=== PATIENT | female | born 1985 | race Caucasian/White ===

== ENCOUNTER → 2016-03-21 | Outpatient (CLI) | payer BC | LOC: RAD 14:39 | DX: R06.02 Shortness of breath (principal) ==

== ENCOUNTER → 2018-12-30 | Outpatient (CLI) | payer BC ==
[2018-12-30 10:10] LABS: HEMATOCRIT 35.8 % (37.0-47.0); HEMOGLOBIN 10.4 g/dL (12.5-16.0); MEAN CELL VOLUME 71 fl (78-100); MEAN PLATELET VOLUME 9.4 fl (7.4-10.4); PLATELET COUNT 400 K/mm3 (130-400); RED BLOOD COUNT 5.08 M/mm3 (4.10-5.30); WHITE BLOOD COUNT 8.1 K/mm3 (4.8-10.8)
[2018-12-30 10:16] LABS: POTASSIUM 3.8 mmol/L (3.5-5.1)
[2018-12-30 10:17] LABS: CALCIUM 9.2 mg/dL (8.3-10.5)
[2018-12-30 10:19] LABS: TOTAL PROTEIN 7.6 g/dL (6.4-8.3)
[2018-12-30 10:21] LABS: TOTAL BILIRUBIN 0.6 mg/dL (0.2-1.2)
[2018-12-30 11:13] LABS: MEAN CORPUSCULAR HEMOGLOBIN 21 pg (27-31); MEAN CORPUSCULAR HGB CONC 29 g/dL (33-37); RED CELL DISTRIBUTION WIDTH 19.1 % (11.5-14.5)
[2018-12-30 12:14] LABS: LYMPHOCYTE 39 % (20-51); MONOCYTE 6 % (3-10); NEUTROPHILS 52 % (42-75)
[2018-12-30 12:15] LABS: ERYTHROCYTE SEDIMENTATION RATE 9 mm/hr (0-20); MICROCYTOSIS 1+
== END ==
LOC: LAB 09:50
PROVIDERS: Internal Medicine
DX: Z00.00 Encounter for general adult medical examination without abnormal findings (principal)

== ENCOUNTER → 2019-05-29 | Outpatient (CLI) | payer BC ==
[2019-05-29 16:39] LABS: EOS # 0.1 (0.04-0.40); EOS % 1.6 % (1.0-5.0); HEMATOCRIT 38.6 % (37.0-47.0); HEMOGLOBIN 11.5 g/dL (12.5-16.0); LYMPH# 2.9 (1.50-4.00); MEAN CELL VOLUME 78 fl (78-100); MEAN CORPUSCULAR HGB CONC 30 g/dL (33-37); MONO # 0.8 (0.20-0.80); NEU # 4.5 (1.40-6.50); PLATELET COUNT 453 K/mm3 (130-400); RED BLOOD COUNT 4.96 M/mm3 (4.10-5.30); RED CELL DISTRIBUTION WIDTH 17.4 % (11.5-14.5); WHITE BLOOD COUNT 8.3 K/mm3 (4.8-10.8)
[2019-05-29 16:43] LABS: MEAN CORPUSCULAR HEMOGLOBIN 23 pg (27-31)
[2019-05-29 16:57] LABS: POTASSIUM 3.6 mmol/L (3.5-5.1)
[2019-05-29 16:59] LABS: CALCIUM 9.5 mg/dL (8.3-10.5)
[2019-05-29 17:00] LABS: TOTAL PROTEIN 7.6 g/dL (6.4-8.3)
[2019-05-29 17:02] LABS: TOTAL BILIRUBIN 0.5 mg/dL (0.2-1.2)
== END ==
LOC: LAB 16:27
PROVIDERS: Internal Medicine
DX: Z00.00 Encounter for general adult medical examination without abnormal findings (principal)

== ENCOUNTER → 2021-06-28 | Outpatient (CLI) | payer OTHER ==
[2021-06-28 13:16] LABS: BASO # 0.02 K/mm3 (0.02-0.10); EOS # 0.09 K/mm3 (0.04-0.40); EOS % 0.7 % (1.0-5.0); HEMATOCRIT 48.9 % (37.0-47.0); HEMOGLOBIN 16.3 g/dL (12.5-16.0); LYMPH# 3.23 K/mm3 (1.50-4.00); MEAN CELL VOLUME 92 fl (78-100); MEAN CORPUSCULAR HEMOGLOBIN 31 pg (27-31); MEAN CORPUSCULAR HGB CONC 33 g/dL (33-37); MEAN PLATELET VOLUME 9.9 fl (7.4-10.4); MONO # 0.89 K/mm3 (0.20-0.80); PLATELET COUNT 311 K/mm3 (130-400); RED BLOOD COUNT 5.34 M/mm3 (4.10-5.30); WHITE BLOOD COUNT 13.3 K/mm3 (4.8-10.8)
[2021-06-28 13:25] LABS: POTASSIUM 4.1 mmol/L (3.5-5.1)
[2021-06-28 13:26] LABS: ALBUMIN 4.5 g/dL (3.5-5.0)
[2021-06-28 13:27] LABS: CALCIUM 10.2 mg/dL (8.3-10.5)
[2021-06-28 13:28] LABS: TOTAL PROTEIN 8.3 g/dL (6.4-8.3)
[2021-06-28 13:30] LABS: TOTAL BILIRUBIN 1.4 mg/dL (0.2-1.2)
== END ==
LOC: LAB 12:51
PROVIDERS: Internal Medicine
DX: Z00.00 Encounter for general adult medical examination without abnormal findings (principal); F41.8 Other specified anxiety disorders

== ENCOUNTER → 2023-01-01 | Outpatient (CLI) | payer BC | LOC: LAB 16:50 | DX: F41.8 Other specified anxiety disorders (principal); E66.9 Obesity, unspecified; R17 Unspecified jaundice; E78.2 Mixed hyperlipidemia; E28.2 Polycystic ovarian syndrome; R73.03 Prediabetes; E55.9 Vitamin D deficiency, unspecified; K90.9 Intestinal malabsorption, unspecified; E03.9 Hypothyroidism, unspecified; F90.0 Attention-deficit hyperactivity disorder, predominantly inattentive type; B37.2 Candidiasis of skin and nail; E21.1 Secondary hyperparathyroidism, not elsewhere classified ==

== ENCOUNTER → 2023-05-15 | Outpatient (CLI) | payer BC | LOC: LAB 15:49 | PROVIDERS: Internal Medicine | DX: E21.1 Secondary hyperparathyroidism, not elsewhere classified (principal) ==

== ENCOUNTER → 2024-01-14 | Outpatient (CLI) | payer BC ==
[2024-01-14 17:07] LABS: ALBUMIN 3.9 g/dL (3.5-5.0)
[2024-01-14 17:09] LABS: CALCIUM 8.7 mg/dL (8.3-10.5)
[2024-01-14 17:10] LABS: TOTAL PROTEIN 6.7 g/dL (6.4-8.3)
[2024-01-14 17:12] LABS: TOTAL BILIRUBIN 1.1 mg/dL (0.2-1.2)
[2024-01-14 17:16] LABS: MAGNESIUM 1.96 mg/dL (1.60-2.60)
[2024-01-14 17:34] LABS: BASO # 0.01 K/mm3 (0.02-0.10); EOS # 0.05 K/mm3 (0.04-0.40); EOS % 0.8 % (1.0-5.0); HEMATOCRIT 39.3 % (37.0-47.0); HEMOGLOBIN 12.6 g/dL (12.5-16.0); LYMPH# 1.79 K/mm3 (1.50-4.00); MEAN CELL VOLUME 94 fl (78-100); MEAN CORPUSCULAR HEMOGLOBIN 30 pg (27-31); MEAN CORPUSCULAR HGB CONC 32 g/dL (33-37); MEAN PLATELET VOLUME 10.1 fl (7.4-10.4); MONO # 0.48 K/mm3 (0.20-0.80); NEU # 4.15 K/mm3 (1.40-6.50); PLATELET COUNT 282 K/mm3 (130-400); RED BLOOD COUNT 4.18 M/mm3 (4.10-5.30); RED CELL DISTRIBUTION WIDTH 12.3 % (11.5-14.5); WHITE BLOOD COUNT 6.5 K/mm3 (4.8-10.8)
[2024-01-15 00:09] LABS: PTH,INTACT 31.4 pg/mL (6.6-88.9)
[2024-01-19 14:10] LABS: VITAMIN B1 99.3 nmol/L (())
== END ==
LOC: LAB 16:45
PROVIDERS: Internal Medicine
DX: F41.8 Other specified anxiety disorders (principal); K90.9 Intestinal malabsorption, unspecified; E03.9 Hypothyroidism, unspecified; E21.1 Secondary hyperparathyroidism, not elsewhere classified; R73.03 Prediabetes

== ENCOUNTER → 2024-05-12 | Outpatient (CLI) | payer BC ==
[2024-05-12 18:20] LABS: CALCIUM 9.3 mg/dL (8.3-10.5)
[2024-05-12 18:21] LABS: TOTAL PROTEIN 7.1 g/dL (6.4-8.3)
[2024-05-12 18:23] LABS: TOTAL BILIRUBIN 1.2 mg/dL (0.2-1.2)
[2024-05-12 18:28] LABS: MAGNESIUM 1.79 mg/dL (1.60-2.60)
[2024-05-15 13:11] LABS: VITAMIN D 1,25 DIHYDROXY 45.9 pg/mL (())
== END ==
LOC: LAB 16:48
PROVIDERS: Internal Medicine
DX: K90.9 Intestinal malabsorption, unspecified (principal); E87.6 Hypokalemia